=== PATIENT | female | born 1950 | race Caucasian/White ===

== ENCOUNTER 2021-02-27 19:01 | Inpatient (IN) ==
[2021-02-27] MEDS ORDERED: 0.9 % Sodium Chloride 1,000 ML IVC ONE (19:28)
[2021-02-27 20:17] LABS: Basophils % 0.1 %; Hematocrit 42.4 % (35.3-44.9); Hemoglobin 14.1 g/dL (11.5-15.4); Immature Granulocytes % 0.6 % (0-4); Lymphocytes # 0.7 K/mcL (0.6-4.6); Lymphocytes % 3.9 %; Mean Corpuscular HGB Conc 33.3 g/dL (31.6-35.5); Mean Corpuscular Hemoglobin 29.9 pg (28.0-33.3); Mean Corpuscular Volume 89.8 fL (83.0-100.0); Mean Platelet Volume 8.7 fL (9.4-12.4); Monocytes # 1.3 K/mcL (0.0-1.3); Monocytes % 7.8 %; Neutrophils # 14.4 K/mcL (1.6-8.9); Platelet Count 276 K/mcL (140-400); Red Blood Count 4.72 M/mcL (3.82-4.97); Red Cell Distribution Width 12.2 % (11.5-14.5); Segmented Neutrophils % 87.6 %; White Blood Count 16.5 K/mcL (4.3-11.1)
[2021-02-27 20:21] LABS: Acetaminophen < 10 mcg/mL (10-20); Alanine Aminotransferase 30 Units/L (7-52); Albumin 4.3 g/dL (3.5-5.7); Albumin/Globulin Ratio 1.3 (1.1-2.2); Alkaline Phosphatase 120 Units/L (34-104); Aspartate Amino Transferase 63 Units/L (13-39); BUN/Creatinine Ratio 16 (6-26); Bilirubin,Direct 0.3 mg/dL (0.0-0.2); Bilirubin,Indirect 0.9 mg/dL (0.0-1.0); Bilirubin,Total 1.2 mg/dL (0.3-1.0); Blood Urea Nitrogen 26 mg/dL (8-23); Calcium 9.7 mg/dL (8.6-10.3); Carbon Dioxide 19 mEq/L (23-29); Chloride 98 mEq/L (98-107); Creatine Kinase 514 Units/L (30-223); Ethanol < 10 mg/dL (Less than 10); Globulin 3.2 g/dL (2.4-3.5); Glucose 394 mg/dL (70-105); Lipase 12 Units/L (11-82); Osmolality,Calculated 305 (280-300); Potassium 3.3 mEq/L (3.5-5.1); Salicylate < 2.5 mg/dL (15.0-30.0); Sodium 137 mEq/L (136-145); Total Protein 7.5 g/dL (6.4-8.9); eGFR For African Americans 38 (> 60); eGFR For Non-African Americans 31 (> 60)
[2021-02-27] MEDS ORDERED: cefTRIAXone 1,000 MG in Water for inj. (sterile) 10 ML IVP ONE (20:41)
[2021-02-27 20:43] LABS: Thyroid Stimulating Hormone < 0.010 mcIU/mL (0.340-5.600)
[2021-02-27 20:43] LABS: Bilirubin,Urine Negative (Negative); Blood,Urine Negative (Negative); Clarity,Urine Turbid (Clear); Color,Urine Yellow (Yellow); Glucose,Urine (UA) 200 mg/dL (Normal); Granular Casts,Urine Many per lpf (None Seen); Hyaline Casts,Urine Few per lpf (None Seen); Ketones,Urine 20 mg/dL (Negative); Leukocyte Esterase,Urine Negative (Negative); Mucus,Urine Few per lpf (None-Few); Nitrite,Urine Negative (Negative); PH,Urine 6.5 pH Units (5.0-8.0); Protein,Urine 70 mg/dL (Neg-Trace); RBC,Urine 0-3 per hpf (0-3); Specific Gravity,Urine 1.011 (1.010-1.025); Urobilinogen,Urine Normal (Normal)
[2021-02-27 20:47] LABS: Troponin I 12.78 ng/mL (< 0.04)
[2021-02-27 20:48] LABS: Amphetamine Screen,Urine Negative ng/mL (Cutoff=1000); Barbiturate Screen,Urine Negative ng/mL (Cutoff=200); Benzodiazepines Screen,Urine Positive ng/mL (Cutoff=200); Cannabinoid Screen,Urine Positive ng/mL (Cutoff = 50); Cocaine Screen,Urine Negative ng/mL (Cutoff= 300); Opiate Screen,Urine Negative ng/mL (Cutoff=300); Phencyclidine Screen,Urine Negative ng/mL (Cutoff=25)
[2021-02-27] MEDS ORDERED: Aspirin 325 MG TABLET PO ONE (21:47)
[2021-02-27] MEDS ORDERED: *HR* Heparin 5,000 UNIT/ML VIAL IVP PRN (21:48)
[2021-02-27] MEDS ORDERED: *HR* Heparin 5,000 UNIT/ML VIAL IVP ONE (21:48)
[2021-02-27] MEDS ORDERED: *HR* FentaNYL (PF) 100 MCG/2 ML VIAL IVP ONE (21:52)
[2021-02-27 22:25] LABS: Heparin anti-factor XA UFH 0.04 IU/mL (0.30-0.70)
[2021-02-27] MEDS: Heparin 25,000UNIT/250ML 1/2NS 25,000 UNIT/250 ML IV.SOLN IVC SCH (22:29)
[2021-02-27] MEDS ORDERED: Insulin Regular, Human 100 UNIT/ML SUBQ ONE (23:27)
[2021-02-28] MEDS ORDERED: Naloxone 0.4 MG/ML INJ IVP PRN
[2021-02-28] MEDS ORDERED: Ondansetron 4 MG/2 ML VIAL IVP PRN
[2021-02-28] MEDS ORDERED: *HR* Dextrose 50 % in Water (Vial) 50 ML VIAL IVP PRN (00:03)
[2021-02-28] MEDS ORDERED: Dextrose Gel 15 GM/37.5 ML TUBE PO PRN ×2 (00:03)
[2021-02-28] MEDS ORDERED: D5% in Water 1,000 ML IVC PRN (00:03)
[2021-02-28] MEDS ORDERED: Perflutren Lipid Microsphere 1.3 ML in 0.9 % Sodium Chloride 8.7 ML IVP PRN (00:03)
[2021-02-28 01:49] LABS: Basophils % 0.2 %; Hematocrit 37.3 % (35.3-44.9); Hemoglobin 12.7 g/dL (11.5-15.4); Immature Granulocytes % 0.4 % (0-4); Lymphocytes # 1.4 K/mcL (0.6-4.6); Lymphocytes % 11.9 %; Mean Corpuscular Hemoglobin 30.1 pg (28.0-33.3); Mean Corpuscular Volume 88.4 fL (83.0-100.0); Mean Platelet Volume 8.7 fL (9.4-12.4); Monocytes % 8.7 %; Platelet Count 230 K/mcL (140-400); Red Blood Count 4.22 M/mcL (3.82-4.97); Red Cell Distribution Width 12.1 % (11.5-14.5); Segmented Neutrophils % 78.8 %; White Blood Count 11.4 K/mcL (4.3-11.1)
[2021-02-28 01:53] LABS: VBG HCO3 24 mEq/L (21-27); VBG PCO2 44 mmHg (41-51); VBG PH 7.35 pH Units (7.32-7.42); VBG PO2 34 mmHg (25-50)
[2021-02-28 02:12] LABS: Albumin/Globulin Ratio 1.4 (1.1-2.2); Bilirubin,Total 0.8 mg/dL (0.3-1.0); Calcium 9.1 mg/dL (8.6-10.3); Chol/HDL Ratio 3.4 (0-4.9); Globulin 2.9 g/dL (2.4-3.5); Phosphorous 4.1 mg/dL (2.7-4.5); Potassium 3.6 mEq/L (3.5-5.1); Total Protein 6.9 g/dL (6.4-8.9); Troponin I 13.54 ng/mL (< 0.04)
[2021-02-28] MEDS ORDERED: *HR* HYDROmorphone (PF) 1 MG/ML SYRINGE IVP ONE (02:16)
[2021-02-28 02:17] LABS: INR 1.2; Prothrombin Time 14.1 Seconds (9.4-12.1)
[2021-02-28] MEDS: 0.9 % Sodium Chloride 1,000 ML IVC SCH ×3 (02:39→20:21)
[2021-02-28] MEDS: Insulin LISPRO 300 UNITS/3 ML VIAL SUBQ SCH ×6 (02:42→20:46)
[2021-02-28] MEDS: Acetaminophen 325 MG TABLET PO PRN ×2 (02:44→06:06)
[2021-02-28 03:02] LABS: Estimated Average Glucose 174 mg/dl; Hemoglobin A1C 7.7 %
[2021-02-28 03:03] LABS: Triiodothyronine (T3) Free 3.41 pg/mL (2.50-3.90)
[2021-02-28] MEDS ORDERED: cefTRIAXone 1,000 MG in 0.9 % Sodium Chloride Mini Bag 100 ML IVPB SCH (09:00)
[2021-02-28] MEDS: Aspirin 81 MG TAB.CHEW PO SCH (12:39)
[2021-02-28] MEDS: *HR* Heparin 5,000 UNIT/ML VIAL IVP PRN (12:40)
[2021-03-01 02:40] LABS: Mean Corpuscular HGB Conc 34.3 g/dL (31.6-35.5); Mean Corpuscular Hemoglobin 31.2 pg (28.0-33.3); Mean Corpuscular Volume 90.9 fL (83.0-100.0); Mean Platelet Volume 8.9 fL (9.4-12.4); Platelet Count 203 K/mcL (140-400); Red Blood Count 3.85 M/mcL (3.82-4.97); Red Cell Distribution Width 12.3 % (11.5-14.5); White Blood Count 6.9 K/mcL (4.3-11.1)
[2021-03-01 03:00] LABS: Albumin 3.6 g/dL (3.5-5.7); Albumin/Globulin Ratio 1.2 (1.1-2.2); Bilirubin,Total 0.6 mg/dL (0.3-1.0); Calcium 8.9 mg/dL (8.6-10.3); Globulin 2.9 g/dL (2.4-3.5); Potassium 3.7 mEq/L (3.5-5.1); Total Protein 6.5 g/dL (6.4-8.9)
[2021-03-01] MEDS: 0.9 % Sodium Chloride 1,000 ML IVC SCH ×3 (10:09→23:43)
[2021-03-01] MEDS: Heparin 25,000UNIT/250ML 1/2NS 25,000 UNIT/250 ML IV.SOLN IVC SCH ×2 (10:10→23:51)
[2021-03-01] MEDS: Insulin LISPRO 300 UNITS/3 ML VIAL SUBQ SCH ×4 (10:20→19:55)
[2021-03-01] MEDS: Aspirin 81 MG TAB.CHEW PO SCH (10:20)
[2021-03-01] MEDS ORDERED: 0.9 % Sodium Chloride 2,000 ML ONE (17:08)
[2021-03-01] MEDS ORDERED: Heparin 1,000 UNITS/500 mL 500 ML ONE (17:08)
[2021-03-01] MEDS ORDERED: ISOVUE-370 200 ML INFUS..BTL ONE (17:08)
[2021-03-01] MEDS ORDERED: *HR* Heparin 10,000 UNIT/10 ML VIAL ONE (17:08)
[2021-03-01] MEDS ORDERED: *HR* Midazolam HCl 2 MG/2 ML VIAL ONE (17:08)
[2021-03-01] MEDS ORDERED: *HR* FentaNYL (PF) 100 MCG/2 ML VIAL ONE (17:08)
[2021-03-01] MEDS ORDERED: Nitroglycerin 1,000 MCG/5 ML VIAL IV ONE (17:09)
[2021-03-01] MEDS: Melatonin 3 MG TABLET PO PRN (20:14)
[2021-03-01] MEDS: *HR* HYDROcodone/Acet 5/325 mg TABLET PO PRN (21:46)
[2021-03-02 03:03] LABS: Hematocrit 34.5 % (35.3-44.9); Mean Corpuscular HGB Conc 31.9 g/dL (31.6-35.5); Mean Corpuscular Hemoglobin 30.1 pg (28.0-33.3); Mean Corpuscular Volume 94.3 fL (83.0-100.0); Mean Platelet Volume 9.4 fL (9.4-12.4); Platelet Count 114 K/mcL (140-400); Red Blood Count 3.66 M/mcL (3.82-4.97); Red Cell Distribution Width 12.1 % (11.5-14.5); White Blood Count 4.6 K/mcL (4.3-11.1)
[2021-03-02 03:22] LABS: Calcium 8.6 mg/dL (8.6-10.3); Potassium 3.9 mEq/L (3.5-5.1)
[2021-03-02] MEDS: 0.9 % Sodium Chloride 1,000 ML IVC SCH (06:14)
[2021-03-02] MEDS: Insulin LISPRO 300 UNITS/3 ML VIAL SUBQ SCH ×4 (08:13→20:35)
[2021-03-02] MEDS: Aspirin 81 MG TAB.CHEW PO SCH (08:14)
[2021-03-02] MEDS: *HR* HYDROcodone/Acet 5/325 mg TABLET PO PRN (08:14)
[2021-03-02] MEDS: D5% in 0.45% NACL 1,000 ML IVC SCH (13:19)
[2021-03-02] MEDS ORDERED: diazePAM 2 MG TABLET PO PRN (14:29)
[2021-03-02] MEDS: *HR* Heparin 5,000 UNIT/ML VIAL IVP PRN (20:32)
[2021-03-02] MEDS: Melatonin 3 MG TABLET PO PRN (20:34)
[2021-03-03] MEDS: Heparin 25,000UNIT/250ML 1/2NS 25,000 UNIT/250 ML IV.SOLN IVC SCH ×2 (02:08→22:53)
[2021-03-03] MEDS: D5% in 0.45% NACL 1,000 ML IVC SCH (02:08)
[2021-03-03] MEDS: Acetaminophen 325 MG TABLET PO PRN (04:59)
[2021-03-03] MEDS: Insulin LISPRO 300 UNITS/3 ML VIAL SUBQ SCH ×4 (08:11→16:50)
[2021-03-03] MEDS: Aspirin 81 MG TAB.CHEW PO SCH (08:18)
[2021-03-04 07:46] VITALS: BP 124/64
[2021-03-04] MEDS: Insulin LISPRO 300 UNITS/3 ML VIAL SUBQ SCH (09:30)
[2021-03-04] MEDS: Aspirin 81 MG TAB.CHEW PO SCH (09:30)
== END 2021-03-04 11:49 | disposition short-term general hospital (02) | DRG 280 ==
LOC: EMEROOARM 19:01 → 2NENU 19:01 → SUATTDRO 02-28 00:39 → 2NENU 02-28 00:59
PROVIDERS: ADMIT Internal Medicine; ATTEND Student in an Organized Health Care Education/Training Program

== ENCOUNTER 2021-09-14 22:04 | Inpatient (IN) ==
[2021-09-15] MEDS: Ondansetron 4 MG/2 ML VIAL IVP ONE ×2 (00:46→01:05)
[2021-09-15] MEDS: Morphine Sulfate 2 MG/ML SYRINGE IVP ONE ×2 (00:46→01:05)
[2021-09-15 01:21] LABS: Basophils % 0.2 %; Eosinophils % 0.1 %; Hematocrit 34.5 % (35.3-44.9); Hemoglobin 11.6 g/dL (11.5-15.4); Immature Granulocytes % 0.3 % (0-4); Lymphocytes # 1.1 K/mcL (0.6-4.6); Lymphocytes % 10.2 %; Mean Corpuscular HGB Conc 33.6 g/dL (31.6-35.5); Mean Corpuscular Hemoglobin 30.5 pg (28.0-33.3); Mean Corpuscular Volume 90.8 fL (83.0-100.0); Mean Platelet Volume 9.1 fL (9.4-12.4); Monocytes # 0.8 K/mcL (0.0-1.3); Neutrophils # 8.8 K/mcL (1.6-8.9); Platelet Count 198 K/mcL (140-400); Red Cell Distribution Width 12.6 % (11.5-14.5); Segmented Neutrophils % 82.2 %; White Blood Count 10.7 K/mcL (4.3-11.1)
[2021-09-15 01:36] LABS: Alanine Aminotransferase 16 Units/L (7-52); Albumin/Globulin Ratio 1.4 (1.1-2.2); Alkaline Phosphatase 91 Units/L (34-104); Aspartate Amino Transferase 23 Units/L (13-39); BUN/Creatinine Ratio 24 (6-26); Bilirubin,Total 0.5 mg/dL (0.3-1.0); Blood Urea Nitrogen 16 mg/dL (8-23); Calcium 9.2 mg/dL (8.6-10.3); Carbon Dioxide 29 mEq/L (23-29); Chloride 105 mEq/L (98-107); Globulin 2.9 g/dL (2.4-3.5); Glucose 266 mg/dL (70-105); Osmolality,Calculated 306 (280-300); Potassium 3.2 mEq/L (3.5-5.1); Sodium 143 mEq/L (136-145); Total Protein 6.9 g/dL (6.4-8.9); eGFR For African Americans > 60 (> 60); eGFR For Non-African Americans > 60 (> 60)
[2021-09-15 01:52] LABS: Influenza A PCR Negative (Negative); Influenza B PCR Negative (Negative); Resp. Syncytial Virus PCR Negative (Negative)
[2021-09-15 01:53] LABS: SARS-CoV-2 by PCR (In House) Negative (Negative)
[2021-09-15] MEDS ORDERED: Potassium Chloride Elixir 20 MEQ/15 ML UDC PO ONE ×2 (02:45→09:30)
[2021-09-15] MEDS ORDERED: D5% in Water 1,000 ML IVC PRN ×2 (03:44→11:04)
[2021-09-15] MEDS ORDERED: Dextrose Gel 15 GM/37.5 ML TUBE PO PRN ×4 (03:44→11:04)
[2021-09-15] MEDS ORDERED: *HR* Dextrose 50 % in Water (Syg) 50 ML SYRINGE IVP PRN ×2 (03:44→11:04)
[2021-09-15] MEDS ORDERED: Ondansetron 4 MG/2 ML VIAL IVP PRN (03:48)
[2021-09-15] MEDS ORDERED: Acetaminophen 325 MG TABLET PO PRN (03:48)
[2021-09-15] MEDS ORDERED: Naloxone 0.4 MG/ML INJ IVP PRN (03:48)
[2021-09-15] MEDS ORDERED: tiZANidine 4 MG TABLET PO PRN (04:15)
[2021-09-15] MEDS ORDERED: Insulin LISPRO 300 UNITS/3 ML VIAL SUBQ SCH (06:00)
[2021-09-15 06:03] LABS: Chol/HDL Ratio 1.7 (0-4.9); Magnesium 1.8 mg/dL (1.6-2.6)
[2021-09-15] MEDS: *HR* HYDROmorphone 2 MG TABLET PO PRN ×3 (06:13→18:48)
[2021-09-15 06:15] LABS: Thyroid Stimulating Hormone 0.017 mcIU/mL (0.340-5.600)
[2021-09-15] MEDS: Aspirin Enteric Coated 81 MG Tablet PO SCH (08:13)
[2021-09-15] MEDS ORDERED: ceFAZolin 2,000 MG in Water for inj. (sterile) 20 ML IVP ONE (10:06)
[2021-09-15 10:42] LABS: Estimated Average Glucose 194 mg/dl; Hemoglobin A1C 8.4 %
[2021-09-15] MEDS: Insulin LISPRO 300 UNITS/3 ML VIAL SUBQ SCH ×3 (12:17→23:52)
[2021-09-15] MEDS: *HR* Heparin 5,000 UNIT/ML VIAL SQ SCH ×2 (14:19→22:18)
[2021-09-15 16:33] LABS: BUN/Creatinine Ratio 22 (6-26); Blood Urea Nitrogen 13 mg/dL (8-23); Calcium 8.5 mg/dL (8.6-10.3); Carbon Dioxide 28 mEq/L (23-29); Chloride 106 mEq/L (98-107); Glucose 130 mg/dL (70-105); Magnesium 1.9 mg/dL (1.6-2.6); Osmolality,Calculated 296 (280-300); Potassium 3.7 mEq/L (3.5-5.1); Sodium 142 mEq/L (136-145); eGFR For African Americans > 60 (> 60); eGFR For Non-African Americans > 60 (> 60)
[2021-09-15 16:34] LABS: Troponin I 0.03 ng/mL (< 0.04)
[2021-09-15 16:48] LABS: Triiodothyronine (T3) Free 4.29 pg/mL (2.50-3.90)
[2021-09-16] MEDS: *HR* HYDROmorphone 2 MG TABLET PO PRN ×2 (00:33→09:50)
[2021-09-16 04:42] LABS: Hematocrit 29.3 % (35.3-44.9); Mean Corpuscular HGB Conc 33.1 g/dL (31.6-35.5); Mean Corpuscular Hemoglobin 30.5 pg (28.0-33.3); Mean Corpuscular Volume 92.1 fL (83.0-100.0); Mean Platelet Volume 8.6 fL (9.4-12.4); Platelet Count 135 K/mcL (140-400); Red Blood Count 3.18 M/mcL (3.82-4.97); Red Cell Distribution Width 12.7 % (11.5-14.5); White Blood Count 7.1 K/mcL (4.3-11.1)
[2021-09-16 04:44] LABS: Hemoglobin 9.7 g/dL (11.5-15.4)
[2021-09-16 05:01] LABS: BUN/Creatinine Ratio 25 (6-26); Blood Urea Nitrogen 18 mg/dL (8-23); Calcium 8.6 mg/dL (8.6-10.3); Carbon Dioxide 28 mEq/L (23-29); Chloride 103 mEq/L (98-107); Glucose 130 mg/dL (70-105); Osmolality,Calculated 288 (280-300); Potassium 3.7 mEq/L (3.5-5.1); Sodium 137 mEq/L (136-145); eGFR For African Americans > 60 (> 60); eGFR For Non-African Americans > 60 (> 60)
[2021-09-16] MEDS ORDERED: *HR* FentaNYL (PF) 100 MCG/2 ML VIAL IVP PRN (08:08)
[2021-09-16] MEDS ORDERED: *HR* HYDROmorphone PF 0.5 MG/0.5 ML SYRINGE IVP PRN (08:08)
[2021-09-16] MEDS: Insulin LISPRO 300 UNITS/3 ML VIAL SUBQ SCH ×3 (09:49→17:11)
[2021-09-16] MEDS ORDERED: Ondansetron 4 MG/2 ML VIAL ONE (10:15)
[2021-09-16] MEDS ORDERED: Lidocaine -MPF 2% 5 ML VIAL ONE (10:15)
[2021-09-16] MEDS ORDERED: Lidocaine HCL 4 ML Topical Solution (Laryng-O-Jet Kit Sterile Pak) TP ONE (10:15)
[2021-09-16] MEDS ORDERED: *HR* Rocuronium Bromide 50 MG/5 ML VIAL ONE (10:15)
[2021-09-16] MEDS ORDERED: *HR* Succinylcholine 200 MG/10 ML VIAL IVP ONE (10:15)
[2021-09-16] MEDS ORDERED: *HR* Propofol 200 MG/20 ML VIAL IVP ONE (10:15)
[2021-09-16] MEDS ORDERED: *HR* FentaNYL (PF) 100 MCG/2 ML VIAL ONE (10:15)
[2021-09-16] MEDS ORDERED: Albumin Human 5% 12.5 GM/250 ML IV.SOLN ONE (10:21)
[2021-09-16] MEDS ORDERED: Dexmedetomidine HCl 400 MCG/100 ML MLS IVC ONE (10:21)
[2021-09-16] MEDS ORDERED: *HR* Phenylephrine 10 MG/ML VIAL ONE (10:29)
[2021-09-16] MEDS ORDERED: CeFAZolin Syr 2,000MG/20 ML 2,000 MG/20 ML SYRINGE IVPB ONE (10:43)
[2021-09-16] MEDS ORDERED: Heparin 1,000 UNITS/500 mL 500 ML ONE (10:48)
[2021-09-16] MEDS ORDERED: Acetaminophen IV 1,000 MG/100 ML BAG IVPB ONE (11:50)
[2021-09-16] MEDS: Aspirin Enteric Coated 81 MG Tablet PO SCH (11:55)
[2021-09-16] MEDS ORDERED: Tranexamic Acid 1,000 MG/10 ML VIAL ONE ×2 (12:09→13:05)
[2021-09-16] MEDS ORDERED: *HR* HYDROMORPHONE 2 MG/ML VIAL ONE (12:13)
[2021-09-16] MEDS ORDERED: Sugammadex Sodium 200 MG/2 ML VIAL IV ONE (12:52)
[2021-09-16 18:06] LABS: Hematocrit 25.6 % (35.3-44.9); Hemoglobin 8.3 g/dL (11.5-15.4)
[2021-09-16] MEDS: CeFAZolin 2 GM/120 ML BAG IVPB SCH (20:21)
[2021-09-16 21:10] LABS: Bilirubin,Urine Negative (Negative); Blood,Urine Negative (Negative); Clarity,Urine Clear (Clear); Color,Urine Light-Yellow (Yellow); Glucose,Urine (UA) >=1000 mg/dL (Normal); Ketones,Urine Trace mg/dL (Negative); Leukocyte Esterase,Urine Negative (Negative); Mucus,Urine Few per lpf (None-Few); Nitrite,Urine Negative (Negative); Protein,Urine Negative (Neg-Trace); RBC,Urine 0-3 per hpf (0-3); Specific Gravity,Urine 1.016 (1.010-1.025); Squamous Epithelial Cell,Urine Few per hpf (None-Few); Urobilinogen,Urine Normal (Normal); WBC,Urine 0-3 per hpf (0-3)
[2021-09-17] MEDS: Insulin LISPRO 300 UNITS/3 ML VIAL SUBQ SCH ×4 (00:22→18:11)
[2021-09-17] MEDS: CeFAZolin 2 GM/120 ML BAG IVPB SCH (03:53)
[2021-09-17] MEDS: Acetaminophen 325 MG TABLET PO PRN (03:57)
[2021-09-17] MEDS: *HR* HYDROmorphone 2 MG TABLET PO PRN ×2 (04:04→19:45)
[2021-09-17 04:46] LABS: Hematocrit 23.6 % (35.3-44.9); Mean Corpuscular HGB Conc 33.9 g/dL (31.6-35.5); Mean Corpuscular Hemoglobin 30.8 pg (28.0-33.3); Mean Corpuscular Volume 90.8 fL (83.0-100.0); Platelet Count 148 K/mcL (140-400); Red Cell Distribution Width 12.3 % (11.5-14.5); White Blood Count 11.2 K/mcL (4.3-11.1)
[2021-09-17 05:08] LABS: BUN/Creatinine Ratio 30 (6-26); Blood Urea Nitrogen 24 mg/dL (8-23); Calcium 8.8 mg/dL (8.6-10.3); Carbon Dioxide 26 mEq/L (23-29); Chloride 102 mEq/L (98-107); Glucose 194 mg/dL (70-105); Osmolality,Calculated 293 (280-300); Potassium 3.6 mEq/L (3.5-5.1); Sodium 137 mEq/L (136-145); eGFR For African Americans > 60 (> 60); eGFR For Non-African Americans > 60 (> 60)
[2021-09-17 07:31] LABS: Hematocrit 24.1 % (35.3-44.9); Red Blood Count 2.63 M/mcL (3.82-4.97); White Blood Count 11.3 K/mcL (4.3-11.1)
[2021-09-17 07:32] LABS: Basophils % 0.1 %; Eosinophils % 0.1 %; Immature Granulocytes % 0.9 % (0-4); Lymphocytes # 0.7 K/mcL (0.6-4.6); Lymphocytes % 5.9 %; Mean Corpuscular HGB Conc 33.2 g/dL (31.6-35.5); Mean Corpuscular Hemoglobin 30.4 pg (28.0-33.3); Mean Corpuscular Volume 91.6 fL (83.0-100.0); Mean Platelet Volume 9.4 fL (9.4-12.4); Monocytes % 8.5 %; Neutrophils # 9.5 K/mcL (1.6-8.9); Platelet Count 150 K/mcL (140-400); Red Cell Distribution Width 12.2 % (11.5-14.5); Segmented Neutrophils % 84.5 %
[2021-09-17] MEDS: Apixaban 2.5 MG TABLET PO SCH ×2 (08:29→19:44)
[2021-09-17] MEDS: Aspirin Enteric Coated 81 MG Tablet PO SCH (08:30)
[2021-09-17 10:57] LABS: Bilirubin,Urine Negative (Negative); Blood,Urine Moderate (Negative); Clarity,Urine Clear (Clear); Color,Urine Light-Yellow (Yellow); Glucose,Urine (UA) 70 mg/dL (Normal); Ketones,Urine Negative (Negative); Leukocyte Esterase,Urine Negative (Negative); Mucus,Urine Few per lpf (None-Few); Nitrite,Urine Negative (Negative); Protein,Urine Negative (Neg-Trace); RBC,Urine 0-3 per hpf (0-3); Specific Gravity,Urine 1.012 (1.010-1.025); Squamous Epithelial Cell,Urine Few per hpf (None-Few); Urobilinogen,Urine Normal (Normal)
[2021-09-17] MEDS: Insulin DETEMIR 100 UNIT/ML X5UNITS SUBQ SCH (20:52)
[2021-09-17] MEDS ORDERED: *HR* LORazepam 2 MG/ML VIAL IVP ONE (23:44)
[2021-09-18] MEDS: Insulin LISPRO 300 UNITS/3 ML VIAL SUBQ SCH ×4 (00:36→16:45)
[2021-09-18] MEDS: *HR* HYDROmorphone 2 MG TABLET PO PRN ×2 (02:08→20:21)
[2021-09-18 04:57] LABS: Hematocrit 22.8 % (35.3-44.9)
[2021-09-18 05:14] LABS: BUN/Creatinine Ratio 40 (6-26); Blood Urea Nitrogen 27 mg/dL (8-23); Calcium 8.8 mg/dL (8.6-10.3); Carbon Dioxide 25 mEq/L (23-29); Chloride 103 mEq/L (98-107); Glucose 107 mg/dL (70-105); Osmolality,Calculated 292 (280-300); Potassium 3.6 mEq/L (3.5-5.1); Sodium 138 mEq/L (136-145); eGFR For African Americans > 60 (> 60); eGFR For Non-African Americans > 60 (> 60)
[2021-09-18 08:32] LABS: Basophils % 0.1 %; Eosinophils % 0.1 %; Hematocrit 23.6 % (35.3-44.9); Immature Granulocytes % 0.4 % (0-4); Lymphocytes % 18.8 %; Mean Corpuscular HGB Conc 33.9 g/dL (31.6-35.5); Mean Corpuscular Hemoglobin 31.1 pg (28.0-33.3); Mean Corpuscular Volume 91.8 fL (83.0-100.0); Mean Platelet Volume 8.9 fL (9.4-12.4); Monocytes % 9.2 %; Neutrophils # 7.4 K/mcL (1.6-8.9); Platelet Count 185 K/mcL (140-400); Red Blood Count 2.57 M/mcL (3.82-4.97); Red Cell Distribution Width 12.8 % (11.5-14.5); Segmented Neutrophils % 71.4 %; White Blood Count 10.4 K/mcL (4.3-11.1)
[2021-09-18] MEDS: Pantoprazole 40 MG VIAL IVP SCH (09:34)
[2021-09-18] MEDS: Isosorbide MONOnitrate (24 HR) 30 MG TAB.ER.24H PO SCH (09:34)
[2021-09-18] MEDS: Aspirin Enteric Coated 81 MG Tablet PO SCH (09:34)
[2021-09-18] MEDS: Apixaban 2.5 MG TABLET PO SCH ×2 (09:34→20:21)
[2021-09-18] MEDS ORDERED: *HR* LORazepam 0.5 MG TABLET PO ONE (12:15)
[2021-09-18] MEDS ORDERED: Haloperidol Lactate 5 MG/ML VIAL IVP ONE (13:24)
[2021-09-18] MEDS: diazePAM 5 MG TABLET PO PRN (20:21)
[2021-09-18] MEDS: Insulin DETEMIR 100 UNIT/ML X5UNITS SUBQ SCH (20:24)
[2021-09-19] MEDS: Insulin LISPRO 300 UNITS/3 ML VIAL SUBQ SCH ×4 (00:15→17:21)
[2021-09-19] MEDS: *HR* HYDROmorphone 2 MG TABLET PO PRN ×3 (02:09→14:46)
[2021-09-19 05:06] LABS: Basophils % 0.4 %; Eosinophils # 0.1 K/mcL (0.0-0.6); Eosinophils % 1.4 %; Hematocrit 24.3 % (35.3-44.9); Immature Granulocytes % 0.3 % (0-4); Lymphocytes # 2.2 K/mcL (0.6-4.6); Lymphocytes % 29.9 %; Mean Corpuscular HGB Conc 32.9 g/dL (31.6-35.5); Mean Corpuscular Hemoglobin 30.7 pg (28.0-33.3); Mean Corpuscular Volume 93.1 fL (83.0-100.0); Mean Platelet Volume 8.7 fL (9.4-12.4); Monocytes # 0.9 K/mcL (0.0-1.3); Neutrophils # 4.1 K/mcL (1.6-8.9); Platelet Count 198 K/mcL (140-400); Red Blood Count 2.61 M/mcL (3.82-4.97); Red Cell Distribution Width 12.8 % (11.5-14.5); White Blood Count 7.3 K/mcL (4.3-11.1)
[2021-09-19 05:24] LABS: BUN/Creatinine Ratio 33 (6-26); Blood Urea Nitrogen 21 mg/dL (8-23); Calcium 8.7 mg/dL (8.6-10.3); Carbon Dioxide 29 mEq/L (23-29); Chloride 104 mEq/L (98-107); Glucose 96 mg/dL (70-105); Osmolality,Calculated 291 (280-300); Potassium 3.5 mEq/L (3.5-5.1); Sodium 139 mEq/L (136-145); eGFR For African Americans > 60 (> 60); eGFR For Non-African Americans > 60 (> 60)
[2021-09-19] MEDS: Pantoprazole 40 MG VIAL IVP SCH (09:23)
[2021-09-19] MEDS: Aspirin Enteric Coated 81 MG Tablet PO SCH (09:23)
[2021-09-19] MEDS: Isosorbide MONOnitrate (24 HR) 30 MG TAB.ER.24H PO SCH (09:23)
[2021-09-19] MEDS: Apixaban 2.5 MG TABLET PO SCH ×2 (09:24→20:50)
[2021-09-19] MEDS: Acetaminophen 325 MG TABLET PO PRN (20:49)
[2021-09-19] MEDS: Insulin DETEMIR 100 UNIT/ML X5UNITS SUBQ SCH (20:51)
[2021-09-20] MEDS: *HR* HYDROmorphone 2 MG TABLET PO PRN (03:28)
[2021-09-20] MEDS: *HR* HYDROcodone/Acet 5/325 mg TABLET PO PRN (06:27)
[2021-09-20] MEDS: Insulin LISPRO 300 UNITS/3 ML VIAL SUBQ SCH ×3 (09:04→17:32)
[2021-09-20] MEDS: Aspirin Enteric Coated 81 MG Tablet PO SCH (09:06)
[2021-09-20] MEDS: Isosorbide MONOnitrate (24 HR) 30 MG TAB.ER.24H PO SCH (09:06)
[2021-09-20] MEDS: *HR* Glimepiride 4 MG TABLET PO SCH (09:06)
[2021-09-20] MEDS: Apixaban 2.5 MG TABLET PO SCH ×2 (09:06→21:37)
[2021-09-20] MEDS: Pantoprazole 40 MG VIAL IVP SCH (09:07)
[2021-09-20] MEDS: Insulin DETEMIR 100 UNIT/ML X5UNITS SUBQ SCH (21:38)
[2021-09-21 05:21] LABS: Hematocrit 23.5 % (35.3-44.9)
[2021-09-21 05:35] LABS: BUN/Creatinine Ratio 39 (6-26); Blood Urea Nitrogen 24 mg/dL (8-23); Calcium 8.7 mg/dL (8.6-10.3); Carbon Dioxide 28 mEq/L (23-29); Chloride 102 mEq/L (98-107); Glucose 146 mg/dL (70-105); Magnesium 1.8 mg/dL (1.6-2.6); Osmolality,Calculated 291 (280-300); Phosphorous 3.7 mg/dL (2.7-4.5); Potassium 3.3 mEq/L (3.5-5.1); Sodium 137 mEq/L (136-145); eGFR For African Americans > 60 (> 60); eGFR For Non-African Americans > 60 (> 60)
[2021-09-21] MEDS: Aspirin Enteric Coated 81 MG Tablet PO SCH (08:46)
[2021-09-21] MEDS: Isosorbide MONOnitrate (24 HR) 30 MG TAB.ER.24H PO SCH (08:46)
[2021-09-21] MEDS: Insulin LISPRO 300 UNITS/3 ML VIAL SUBQ SCH ×3 (08:46→18:08)
[2021-09-21] MEDS: diazePAM 5 MG TABLET PO PRN (08:46)
[2021-09-21] MEDS: *HR* Glimepiride 4 MG TABLET PO SCH (08:46)
[2021-09-21] MEDS: Apixaban 2.5 MG TABLET PO SCH ×2 (08:46→20:30)
[2021-09-21] MEDS: *HR* HYDROmorphone 2 MG TABLET PO PRN ×2 (08:51→20:57)
[2021-09-21] MEDS: Pantoprazole 40 MG VIAL IVP SCH (11:09)
[2021-09-21] MEDS: Haloperidol Lactate 5 MG/ML VIAL IM PRN (15:15)
[2021-09-21] MEDS: Ringers Solution, Lactated 1,000 ML IVC SCH ×2 (18:53→18:54)
[2021-09-21] MEDS: Insulin DETEMIR 100 UNIT/ML X5UNITS SUBQ SCH (20:33)
[2021-09-21] MEDS ORDERED: Famotidine 20 MG TABLET PO ONE (20:43)
[2021-09-22] MEDS: Apixaban 2.5 MG TABLET PO SCH ×2 (09:32→20:17)
[2021-09-22] MEDS: *HR* OxyCODONE Immed Rel 5 MG TABLET PO PRN ×2 (09:32→15:51)
[2021-09-22] MEDS: *HR* Glimepiride 4 MG TABLET PO SCH (09:32)
[2021-09-22] MEDS: Isosorbide MONOnitrate (24 HR) 30 MG TAB.ER.24H PO SCH (09:32)
[2021-09-22] MEDS: Pantoprazole 40 MG VIAL IVP SCH (09:33)
[2021-09-22] MEDS: Aspirin Enteric Coated 81 MG Tablet PO SCH (09:33)
[2021-09-22] MEDS: Insulin LISPRO 300 UNITS/3 ML VIAL SUBQ SCH ×3 (11:08→18:14)
[2021-09-22] MEDS: *HR* HYDROcodone/Acet 5/325 mg TABLET PO PRN ×2 (13:19→20:16)
[2021-09-22] MEDS: Ringers Solution, Lactated 1,000 ML IVC SCH (18:13)
[2021-09-22] MEDS: Insulin DETEMIR 100 UNIT/ML X5UNITS SUBQ SCH (20:17)
[2021-09-23] MEDS: Insulin LISPRO 300 UNITS/3 ML VIAL SUBQ SCH ×3 (08:18→16:27)
[2021-09-23] MEDS: *HR* Glimepiride 4 MG TABLET PO SCH (08:19)
[2021-09-23] MEDS: Apixaban 2.5 MG TABLET PO SCH ×2 (08:19→20:31)
[2021-09-23] MEDS: Aspirin Enteric Coated 81 MG Tablet PO SCH (08:19)
[2021-09-23] MEDS: Isosorbide MONOnitrate (24 HR) 30 MG TAB.ER.24H PO SCH (08:19)
[2021-09-23] MEDS: Ringers Solution, Lactated 1,000 ML IVC SCH (12:05)
[2021-09-23] MEDS: *HR* OxyCODONE Immed Rel 5 MG TABLET PO PRN (20:37)
[2021-09-23] MEDS: Insulin DETEMIR 100 UNIT/ML X5UNITS SUBQ SCH (20:43)
[2021-09-23] MEDS: polyethylene glycoL 3350 17 GM POWD.PACK PO PRN (22:27)
[2021-09-24] MEDS: *HR* OxyCODONE Immed Rel 5 MG TABLET PO PRN (04:22)
[2021-09-24] MEDS: Insulin LISPRO 300 UNITS/3 ML VIAL SUBQ SCH ×3 (09:19→17:01)
[2021-09-24] MEDS: *HR* HYDROcodone/Acet 5/325 mg TABLET PO PRN (09:28)
[2021-09-24] MEDS: Isosorbide MONOnitrate (24 HR) 30 MG TAB.ER.24H PO SCH (09:29)
[2021-09-24] MEDS: Aspirin Enteric Coated 81 MG Tablet PO SCH (09:29)
[2021-09-24] MEDS: Apixaban 2.5 MG TABLET PO SCH ×2 (09:29→20:37)
[2021-09-24] MEDS: *HR* Glimepiride 4 MG TABLET PO SCH (09:29)
[2021-09-24] MEDS: Ringers Solution, Lactated 1,000 ML IVC SCH (12:29)
[2021-09-24] MEDS: polyethylene glycoL 3350 17 GM POWD.PACK PO PRN (20:38)
[2021-09-24] MEDS: Insulin DETEMIR 100 UNIT/ML X5UNITS SUBQ SCH (20:40)
[2021-09-25] MEDS: Aspirin Enteric Coated 81 MG Tablet PO SCH (09:55)
[2021-09-25] MEDS: Apixaban 2.5 MG TABLET PO SCH ×2 (09:55→19:47)
[2021-09-25] MEDS: Isosorbide MONOnitrate (24 HR) 30 MG TAB.ER.24H PO SCH (09:56)
[2021-09-25] MEDS: *HR* Glimepiride 4 MG TABLET PO SCH (09:56)
[2021-09-25] MEDS: Insulin LISPRO 300 UNITS/3 ML VIAL SUBQ SCH ×3 (12:54→17:56)
[2021-09-25] MEDS: Insulin DETEMIR 100 UNIT/ML X5UNITS SUBQ SCH (19:47)
[2021-09-25] MEDS: polyethylene glycoL 3350 17 GM POWD.PACK PO PRN (19:58)
[2021-09-26 05:07] LABS: BUN/Creatinine Ratio 38 (6-26); Blood Urea Nitrogen 26 mg/dL (8-23); Carbon Dioxide 25 mEq/L (23-29); Chloride 100 mEq/L (98-107); Glucose 229 mg/dL (70-105); Magnesium 1.8 mg/dL (1.6-2.6); Osmolality,Calculated 290 (280-300); Phosphorous 3.8 mg/dL (2.7-4.5); Sodium 134 mEq/L (136-145); eGFR For African Americans > 60 (> 60); eGFR For Non-African Americans > 60 (> 60)
[2021-09-26 07:03] LABS: Basophils % 0.5 %; Eosinophils # 0.2 K/mcL (0.0-0.6); Eosinophils % 2.2 %; Hematocrit 28.3 % (35.3-44.9); Hemoglobin 9.3 g/dL (11.5-15.4); Immature Granulocytes % 0.3 % (0-4); Lymphocytes # 2.2 K/mcL (0.6-4.6); Lymphocytes % 29.7 %; Mean Corpuscular HGB Conc 32.9 g/dL (31.6-35.5); Mean Corpuscular Hemoglobin 30.5 pg (28.0-33.3); Mean Corpuscular Volume 92.8 fL (83.0-100.0); Mean Platelet Volume 8.2 fL (9.4-12.4); Monocytes # 0.6 K/mcL (0.0-1.3); Monocytes % 8.5 %; Neutrophils # 4.4 K/mcL (1.6-8.9); Platelet Count 444 K/mcL (140-400); Red Blood Count 3.05 M/mcL (3.82-4.97); Red Cell Distribution Width 13.7 % (11.5-14.5); Segmented Neutrophils % 58.8 %; White Blood Count 7.4 K/mcL (4.3-11.1)
[2021-09-26] MEDS: Insulin LISPRO 300 UNITS/3 ML VIAL SUBQ SCH ×3 (09:12→18:54)
[2021-09-26] MEDS: Ringers Solution, Lactated 1,000 ML IVC SCH (09:12)
[2021-09-26] MEDS: Aspirin Enteric Coated 81 MG Tablet PO SCH (09:14)
[2021-09-26] MEDS: Isosorbide MONOnitrate (24 HR) 30 MG TAB.ER.24H PO SCH (09:14)
[2021-09-26] MEDS: Apixaban 2.5 MG TABLET PO SCH ×2 (09:14→21:19)
[2021-09-26] MEDS: *HR* Glimepiride 4 MG TABLET PO SCH (09:14)
[2021-09-26] MEDS: Insulin DETEMIR 100 UNIT/ML X5UNITS SUBQ SCH (23:19)
[2021-09-27] MEDS: diazePAM 5 MG TABLET PO PRN (04:04)
[2021-09-27] MEDS: *HR* Glimepiride 4 MG TABLET PO SCH (08:38)
[2021-09-27] MEDS: Insulin LISPRO 300 UNITS/3 ML VIAL SUBQ SCH ×3 (08:39→18:35)
[2021-09-27] MEDS: Isosorbide MONOnitrate (24 HR) 30 MG TAB.ER.24H PO SCH (08:39)
[2021-09-27] MEDS: Aspirin Enteric Coated 81 MG Tablet PO SCH (08:39)
[2021-09-27] MEDS: Apixaban 2.5 MG TABLET PO SCH ×2 (08:39→20:26)
[2021-09-27] MEDS: *HR* OxyCODONE Immed Rel 5 MG TABLET PO PRN (20:26)
[2021-09-27] MEDS: Insulin DETEMIR 100 UNIT/ML X5UNITS SUBQ SCH (20:43)
[2021-09-28] MEDS: *HR* OxyCODONE Immed Rel 5 MG TABLET PO PRN (02:37)
[2021-09-28] MEDS: Isosorbide MONOnitrate (24 HR) 30 MG TAB.ER.24H PO SCH (07:47)
[2021-09-28] MEDS: *HR* Glimepiride 4 MG TABLET PO SCH (07:48)
[2021-09-28] MEDS: Apixaban 2.5 MG TABLET PO SCH ×2 (07:48→20:19)
[2021-09-28] MEDS: Aspirin Enteric Coated 81 MG Tablet PO SCH (07:48)
[2021-09-28] MEDS: Insulin LISPRO 300 UNITS/3 ML VIAL SUBQ SCH ×3 (10:39→18:08)
[2021-09-28 13:15] LABS: Hematocrit 30.3 % (35.3-44.9); Hemoglobin 9.8 g/dL (11.5-15.4); Mean Corpuscular HGB Conc 32.3 g/dL (31.6-35.5); Mean Corpuscular Volume 92.7 fL (83.0-100.0); Mean Platelet Volume 8.1 fL (9.4-12.4); Platelet Count 486 K/mcL (140-400); Red Blood Count 3.27 M/mcL (3.82-4.97); Red Cell Distribution Width 13.6 % (11.5-14.5); White Blood Count 7.6 K/mcL (4.3-11.1)
[2021-09-28 13:55] LABS: BUN/Creatinine Ratio 35 (6-26); Blood Urea Nitrogen 29 mg/dL (8-23); Calcium 9.3 mg/dL (8.6-10.3); Carbon Dioxide 30 mEq/L (23-29); Chloride 96 mEq/L (98-107); Glucose 254 mg/dL (70-105); Osmolality,Calculated 292 (280-300); Potassium 3.9 mEq/L (3.5-5.1); Sodium 134 mEq/L (136-145); eGFR For African Americans > 60 (> 60); eGFR For Non-African Americans > 60 (> 60)
[2021-09-28] MEDS: Sennosides/Docusate Sodium TABLET PO SCH ×2 (18:08→20:18)
[2021-09-28] MEDS: Insulin DETEMIR 100 UNIT/ML X5UNITS SUBQ SCH (20:20)
[2021-09-29] MEDS: Haloperidol Lactate 5 MG/ML VIAL IM PRN (06:42)
[2021-09-29] MEDS: Insulin LISPRO 300 UNITS/3 ML VIAL SUBQ SCH ×3 (08:57→17:34)
[2021-09-29] MEDS: *HR* Glimepiride 4 MG TABLET PO SCH (11:06)
[2021-09-29] MEDS: Isosorbide MONOnitrate (24 HR) 30 MG TAB.ER.24H PO SCH (11:07)
[2021-09-29] MEDS: Apixaban 2.5 MG TABLET PO SCH ×2 (11:07→21:54)
[2021-09-29] MEDS: Sennosides/Docusate Sodium TABLET PO SCH ×2 (11:07→21:55)
[2021-09-29] MEDS: Aspirin Enteric Coated 81 MG Tablet PO SCH (11:07)
[2021-09-29] MEDS: Insulin DETEMIR 100 UNIT/ML X5UNITS SUBQ SCH (21:42)
[2021-09-29] MEDS: Acetaminophen 325 MG TABLET PO PRN (21:54)
[2021-09-30] MEDS: Sennosides/Docusate Sodium TABLET PO SCH ×2 (09:41→21:26)
[2021-09-30] MEDS: Aspirin Enteric Coated 81 MG Tablet PO SCH (09:43)
[2021-09-30] MEDS: Insulin LISPRO 300 UNITS/3 ML VIAL SUBQ SCH ×3 (09:43→17:26)
[2021-09-30] MEDS: Isosorbide MONOnitrate (24 HR) 30 MG TAB.ER.24H PO SCH (09:43)
[2021-09-30] MEDS: Apixaban 2.5 MG TABLET PO SCH ×2 (09:43→21:27)
[2021-09-30] MEDS: *HR* Glimepiride 4 MG TABLET PO SCH (09:44)
[2021-09-30] MEDS: Insulin DETEMIR 100 UNIT/ML X5UNITS SUBQ SCH (21:24)
[2021-09-30] MEDS: Acetaminophen 325 MG TABLET PO PRN (21:27)
[2021-10-01] MEDS: Insulin LISPRO 300 UNITS/3 ML VIAL SUBQ SCH ×3 (08:36→17:52)
[2021-10-01] MEDS: Apixaban 2.5 MG TABLET PO SCH ×2 (09:32→21:05)
[2021-10-01] MEDS: Sennosides/Docusate Sodium TABLET PO SCH ×2 (09:32→21:06)
[2021-10-01] MEDS: *HR* Glimepiride 4 MG TABLET PO SCH (09:32)
[2021-10-01] MEDS: Isosorbide MONOnitrate (24 HR) 30 MG TAB.ER.24H PO SCH (09:32)
[2021-10-01] MEDS: Aspirin Enteric Coated 81 MG Tablet PO SCH (09:33)
[2021-10-02] MEDS: *HR* OxyCODONE Immed Rel 5 MG TABLET PO PRN (00:48)
[2021-10-02] MEDS: Insulin LISPRO 300 UNITS/3 ML VIAL SUBQ SCH ×3 (08:26→18:38)
[2021-10-02] MEDS: Apixaban 2.5 MG TABLET PO SCH ×2 (08:56→21:38)
[2021-10-02] MEDS: Aspirin Enteric Coated 81 MG Tablet PO SCH (08:56)
[2021-10-02] MEDS: Isosorbide MONOnitrate (24 HR) 30 MG TAB.ER.24H PO SCH (08:56)
[2021-10-02] MEDS: *HR* Glimepiride 4 MG TABLET PO SCH (08:57)
[2021-10-02] MEDS: Sennosides/Docusate Sodium TABLET PO SCH ×2 (09:03→21:38)
[2021-10-03] MEDS ORDERED: Melatonin 3 MG TABLET PO PRN (05:03)
[2021-10-03] MEDS: Sennosides/Docusate Sodium TABLET PO SCH ×3 (08:35→21:19)
[2021-10-03] MEDS: Aspirin Enteric Coated 81 MG Tablet PO SCH ×2 (08:35→15:41)
[2021-10-03] MEDS: Apixaban 2.5 MG TABLET PO SCH ×3 (08:35→21:21)
[2021-10-03] MEDS: Isosorbide MONOnitrate (24 HR) 30 MG TAB.ER.24H PO SCH ×2 (08:36→15:41)
[2021-10-03] MEDS: Insulin LISPRO 300 UNITS/3 ML VIAL SUBQ SCH ×3 (08:36→18:39)
[2021-10-03] MEDS: *HR* Glimepiride 4 MG TABLET PO SCH ×2 (08:36→15:36)
[2021-10-03] MEDS: *HR* OxyCODONE Immed Rel 5 MG TABLET PO PRN (16:32)
[2021-10-04] MEDS: *HR* OxyCODONE Immed Rel 5 MG TABLET PO PRN ×2 (00:43→23:57)
[2021-10-04] MEDS: Aspirin Enteric Coated 81 MG Tablet PO SCH (08:09)
[2021-10-04] MEDS: *HR* Glimepiride 4 MG TABLET PO SCH (08:10)
[2021-10-04] MEDS: Apixaban 2.5 MG TABLET PO SCH ×2 (08:11→21:37)
[2021-10-04] MEDS: Isosorbide MONOnitrate (24 HR) 30 MG TAB.ER.24H PO SCH (08:11)
[2021-10-04] MEDS: Sennosides/Docusate Sodium TABLET PO SCH ×2 (08:12→23:30)
[2021-10-04] MEDS: Insulin LISPRO 300 UNITS/3 ML VIAL SUBQ SCH ×3 (08:12→16:37)
[2021-10-04] MEDS: Haloperidol Lactate 5 MG/ML VIAL IM PRN (10:37)
[2021-10-04] MEDS ORDERED: Nicotine 14 MG PATCH.TD24 TD PRN (14:40)
[2021-10-05] MEDS: Aspirin Enteric Coated 81 MG Tablet PO SCH (08:49)
[2021-10-05] MEDS: Isosorbide MONOnitrate (24 HR) 30 MG TAB.ER.24H PO SCH (08:49)
[2021-10-05] MEDS: Apixaban 2.5 MG TABLET PO SCH ×2 (08:50→20:52)
[2021-10-05] MEDS: *HR* Glimepiride 4 MG TABLET PO SCH (08:50)
[2021-10-05] MEDS: Insulin LISPRO 300 UNITS/3 ML VIAL SUBQ SCH ×3 (08:51→16:57)
[2021-10-05] MEDS: Sennosides/Docusate Sodium TABLET PO SCH ×2 (10:24→20:52)
[2021-10-05] MEDS: *HR* OxyCODONE Immed Rel 5 MG TABLET PO PRN (22:25)
[2021-10-06] MEDS: Haloperidol Lactate 5 MG/ML VIAL IM PRN (02:26)
[2021-10-06] MEDS: Aspirin Enteric Coated 81 MG Tablet PO SCH (09:15)
[2021-10-06] MEDS: Isosorbide MONOnitrate (24 HR) 30 MG TAB.ER.24H PO SCH (09:15)
[2021-10-06] MEDS: *HR* Glimepiride 4 MG TABLET PO SCH (09:15)
[2021-10-06] MEDS: Insulin LISPRO 300 UNITS/3 ML VIAL SUBQ SCH ×3 (09:16→18:04)
[2021-10-06] MEDS: Apixaban 2.5 MG TABLET PO SCH (09:16)
[2021-10-06] MEDS: Sennosides/Docusate Sodium TABLET PO SCH (09:16)
[2021-10-07] MEDS: Isosorbide MONOnitrate (24 HR) 30 MG TAB.ER.24H PO SCH (09:05)
[2021-10-07] MEDS: Aspirin Enteric Coated 81 MG Tablet PO SCH (09:05)
[2021-10-07] MEDS: *HR* Glimepiride 4 MG TABLET PO SCH (09:05)
[2021-10-07] MEDS: Apixaban 2.5 MG TABLET PO SCH ×3 (09:09→21:15)
[2021-10-07] MEDS: Sennosides/Docusate Sodium TABLET PO SCH ×3 (09:09→21:15)
[2021-10-07] MEDS: Insulin LISPRO 300 UNITS/3 ML VIAL SUBQ SCH ×3 (09:09→15:20)
[2021-10-08] MEDS: Isosorbide MONOnitrate (24 HR) 30 MG TAB.ER.24H PO SCH (08:30)
[2021-10-08] MEDS: Aspirin Enteric Coated 81 MG Tablet PO SCH (08:31)
[2021-10-08] MEDS: *HR* Glimepiride 4 MG TABLET PO SCH (08:31)
[2021-10-08] MEDS: Insulin LISPRO 300 UNITS/3 ML VIAL SUBQ SCH ×3 (08:38→16:14)
[2021-10-08] MEDS: Sennosides/Docusate Sodium TABLET PO SCH ×2 (08:39→20:42)
[2021-10-08] MEDS: Apixaban 2.5 MG TABLET PO SCH ×2 (08:39→20:41)
[2021-10-09] MEDS: Insulin LISPRO 300 UNITS/3 ML VIAL SUBQ SCH ×3 (07:46→17:11)
[2021-10-09] MEDS: Aspirin Enteric Coated 81 MG Tablet PO SCH (09:01)
[2021-10-09] MEDS: Isosorbide MONOnitrate (24 HR) 30 MG TAB.ER.24H PO SCH (09:01)
[2021-10-09] MEDS: Apixaban 2.5 MG TABLET PO SCH ×2 (09:02→19:41)
[2021-10-09] MEDS: Sennosides/Docusate Sodium TABLET PO SCH ×2 (09:02→19:37)
[2021-10-09] MEDS: *HR* Glimepiride 4 MG TABLET PO SCH (09:02)
[2021-10-10] MEDS: Insulin LISPRO 300 UNITS/3 ML VIAL SUBQ SCH ×2 (10:29→12:21)
[2021-10-10] MEDS: Sennosides/Docusate Sodium TABLET PO SCH ×2 (12:21→22:05)
[2021-10-10] MEDS: Apixaban 2.5 MG TABLET PO SCH ×2 (12:22→22:03)
[2021-10-10] MEDS: *HR* Glimepiride 4 MG TABLET PO SCH (12:22)
[2021-10-10] MEDS: Aspirin Enteric Coated 81 MG Tablet PO SCH (12:22)
[2021-10-10] MEDS: Isosorbide MONOnitrate (24 HR) 30 MG TAB.ER.24H PO SCH (12:22)
[2021-10-11] MEDS: *HR* Glimepiride 4 MG TABLET PO SCH ×3 (07:21→11:02)
[2021-10-11] MEDS: Isosorbide MONOnitrate (24 HR) 30 MG TAB.ER.24H PO SCH ×2 (07:22→07:58)
[2021-10-11] MEDS: Apixaban 2.5 MG TABLET PO SCH ×4 (07:22→21:23)
[2021-10-11] MEDS: Aspirin Enteric Coated 81 MG Tablet PO SCH ×3 (07:22→11:03)
[2021-10-11] MEDS: Sennosides/Docusate Sodium TABLET PO SCH ×2 (07:58→21:24)
[2021-10-12] MEDS: Aspirin Enteric Coated 81 MG Tablet PO SCH (12:37)
[2021-10-12] MEDS: *HR* Glimepiride 4 MG TABLET PO SCH (12:37)
[2021-10-12] MEDS: Sennosides/Docusate Sodium TABLET PO SCH ×2 (12:37→20:37)
[2021-10-12] MEDS: Isosorbide MONOnitrate (24 HR) 30 MG TAB.ER.24H PO SCH (12:37)
[2021-10-12] MEDS: Apixaban 2.5 MG TABLET PO SCH ×2 (12:37→20:37)
[2021-10-13] MEDS: Aspirin Enteric Coated 81 MG Tablet PO SCH ×2 (12:00→20:02)
[2021-10-13] MEDS: Apixaban 2.5 MG TABLET PO SCH (12:00)
[2021-10-13] MEDS: Isosorbide MONOnitrate (24 HR) 30 MG TAB.ER.24H PO SCH (12:00)
[2021-10-13] MEDS: *HR* Glimepiride 4 MG TABLET PO SCH (12:00)
[2021-10-13] MEDS: Sennosides/Docusate Sodium TABLET PO SCH ×2 (12:01→20:02)
[2021-10-14] MEDS: Sennosides/Docusate Sodium TABLET PO SCH ×2 (09:38→20:50)
[2021-10-14] MEDS: *HR* Glimepiride 4 MG TABLET PO SCH (09:39)
[2021-10-14] MEDS: Aspirin Enteric Coated 81 MG Tablet PO SCH ×2 (09:39→20:48)
[2021-10-14] MEDS: Isosorbide MONOnitrate (24 HR) 30 MG TAB.ER.24H PO SCH (09:39)
[2021-10-14] MEDS: Acetaminophen 325 MG TABLET PO PRN (14:20)
[2021-10-14 20:47] VITALS: O2SAT 96
[2021-10-15] MEDS: Acetaminophen 325 MG TABLET PO PRN (00:50)
[2021-10-15 06:40] LABS: Basophils # 0.1 K/mcL (0.0-0.2); Basophils % 0.8 %; Eosinophils # 0.3 K/mcL (0.0-0.6); Eosinophils % 3.9 %; Hematocrit 33.3 % (35.3-44.9); Hemoglobin 11.1 g/dL (11.5-15.4); Immature Granulocytes % 0.3 % (0-4); Lymphocytes # 2.3 K/mcL (0.6-4.6); Lymphocytes % 35.7 %; Mean Corpuscular HGB Conc 33.3 g/dL (31.6-35.5); Mean Corpuscular Hemoglobin 30.2 pg (28.0-33.3); Mean Corpuscular Volume 90.5 fL (83.0-100.0); Mean Platelet Volume 9.3 fL (9.4-12.4); Monocytes # 0.5 K/mcL (0.0-1.3); Monocytes % 7.9 %; Neutrophils # 3.3 K/mcL (1.6-8.9); Platelet Count 220 K/mcL (140-400); Red Blood Count 3.68 M/mcL (3.82-4.97); Red Cell Distribution Width 13.4 % (11.5-14.5); Segmented Neutrophils % 51.4 %; White Blood Count 6.5 K/mcL (4.3-11.1)
[2021-10-15 06:52] LABS: BUN/Creatinine Ratio 38 (6-26); Blood Urea Nitrogen 28 mg/dL (8-23); Calcium 9.6 mg/dL (8.6-10.3); Carbon Dioxide 24 mEq/L (23-29); Chloride 105 mEq/L (98-107); Glucose 136 mg/dL (70-105); Osmolality,Calculated 294 (280-300); Potassium 4.3 mEq/L (3.5-5.1); Sodium 138 mEq/L (136-145); eGFR For African Americans > 60 (> 60); eGFR For Non-African Americans > 60 (> 60)
[2021-10-15 07:05] LABS: Thyroid Stimulating Hormone 12.383 mcIU/mL (0.340-5.600)
[2021-10-15] MEDS: Isosorbide MONOnitrate (24 HR) 30 MG TAB.ER.24H PO SCH (08:13)
[2021-10-15] MEDS: *HR* Glimepiride 4 MG TABLET PO SCH (08:13)
[2021-10-15] MEDS: Aspirin Enteric Coated 81 MG Tablet PO SCH ×2 (08:13→21:33)
[2021-10-15] MEDS: Sennosides/Docusate Sodium TABLET PO SCH ×2 (08:20→21:23)
[2021-10-15 19:34] VITALS: BP 130/64; PULSE 72; TEMP 98.7
[2021-10-16 11:05] LABS: Influenza A PCR Negative (Negative); Influenza B PCR Negative (Negative); Resp. Syncytial Virus PCR Negative (Negative)
[2021-10-16 11:31] LABS: SARS-CoV-2 by PCR (In House) Negative (Negative)
== END 2021-10-16 15:22 | DRG 481 ==
LOC: 4WAOSI 22:04 → EMEROOARM 22:04 → SUATTDRO 09-15 03:48 → 4WAOSI 09-15 04:38 → 3ANU 09-27 12:16
PROVIDERS: ADMIT Student in an Organized Health Care Education/Training Program; ATTEND General Practice